=== PATIENT | male | born 1975 | race Hispanic/Latino ===

== ENCOUNTER 2021-02-16 23:41 | Emergency (ER) | payer OTHER, SELFPAY ==
--- OUTSIDE RECORDS SUMMARY | 2021-02-16 23:46 | XMS REPORT | Continuity of Care Document ---
:1975 Author Organization [facility] t Address [address] [place] [address] Care Team Providers Name Role Phone Unavailable Unavailable Unavailable Problems This patient has no known problems. Allergies, Adverse Reactions, Alerts This patient has no known allergies or adverse reactions. Medications This patient has no known medications. Procedures This patient has no known procedures. Encounters Start End Encounter Admission Attending Care Care Encounter Source Date/Time Date/Time Type Type Clinicians Facility Department ID 2020-11-15 2020-11-15 Outpatient PETERSON PETERSON [id number] [facility] 00:00:00 00:00:00 [facility] 2020-09-30 2020-09-30 Outpatient PETERSON PETERSON [id number] [facility] 00:00:00 00:00:00 e [facility] 2020-09-18 2020-09-18 Outpatient PETERSON PETERSON [id number] [facility] 00:00:00 00:00:00 [facility] 2020-09-17 2020-09-17 Outpatient PETERSON PETERSON [id number] [facility] 00:00:00 00:00:00 [facility] Results Test Description Test Time Test Comments Results Result Comments Source [facility] 2017-08-18 02:19:00 Test Item Value Reference Range Interpretation Comme nts SODIUM (test code = NA) 143 MMOL/L 137-145 K+ (test code = KSERUM) 3.9 MMOL/L 3.5-5.1 PLEASE NOTE NEW REFERENCE RANGE (S) IN EFFECT EFFECTIVE 10/10/2009 - NEW ANALYZER (VITRO S 5600) CHLORIDE (test code = CL) 105 MMOL/L 98-107 CO2 (test code = CO2) 27 MMOL/L 22-30 BUN (test code = BUN) 6 MG/DL 9-20 L CREA (test code = CREA) 0.7 MG/DL 0.8-1.5 L GLUCOSE (test code = 94 MG/DL 70-99 Fasti ng glucose normal <100 GLUCOSE) MG/DL- [place] [employer] recommend ation CALCIUM (test code = 9.2 MG/DL 8.4-10.2 CABLOOD) TOTPROT (test code = 6.5 G/DL 6.3-8.2 TOTPROT) ALBUMIN (test code = 3.2 G/DL 3.5-5.0 L ALBSERUM) BILITOT (test code = 0.6 MG/DL 0.2-1.3 BILITOT) AST (test code = AST) 11 U/L 15-46 L PHOSALK (test code = 52 U/L 38-126 PHOSALK) ALT (test code = ALT) 22 U/L 13-69 GFR (test code = GFR) 131 mL/min/1.73m2 A GFR of >90 mL/min/1.73m2 is considered norm al. [id number] 01:53:00 Test Item Value Reference Range Interpretation Comments WBC (test code = 11.2 K/UL 3.5-10.9 H WBC) RBC (test code = 3.95 M/UL 4.3-5.7 L RBC) HGB (test code = 11.5 G/DL 13.0-17.9 L HGB) HCT (test code = 33.1 % 38-52 L HCT) MCV (test code = 83.8 FL 80-98 MCV) MCH (test code = 29.1 PG 28-32 MCH) MCHC (test code = 34.7 G/DL 32.5-36.5 MCHC) RDW (test code = 11.9 % 11.5-14.5 RDW) PLT (test code = 606 K/UL 150-450 H PLT) MPV (test code = 8.5 FL 7.4-10.4 MPV) MANDIFF (test code = NO MANDIFF) SCAN (test code = NO SCAN) NEUT% (test code = 70.1 % 40-75 NEUT%) LYMPH% (test code = 17.5 % 24-44 L LYMPH%) MONO% (test code = 7.5 % 0-13 MONO%) EOS% (test code = 3.9 % 0-4 EOS%) BASO % (test code = 0.6 % 0-2 BASO%) IG% (test code = 0.4 % 0-1 IG% = Metam yelocytes, IG%) Myelocytes, and Promyelocytes. (Immature neutr ophils not including " bands".) > 3% IG indic ates risk of sepsis NRBC% (test code = 0 /100 WBC NRBC%) ABS NEUT (test code 7.8 K/UL 1.2-7.2 H = NEUT) CHEST XR 2 [id number] 12:51:[address] [id number] IMAGING REPORTPatient Name: Javier HYATT of Service: [id number]: 41 Sex: M Order #: [id number] Room: [address] [place] [address] 2NWDOB: 1975 X-Ray Number: [id number] Record Number: [id number] Hospital Number: [id number] Physician: Gillian VILLALTA Physician: Alena VILLALTA 2 views 12:30 PMCOMPARISON: 08/13/2017HISTORY: Preop respiratory assessment.FINDINGS:Heart size is normal.There is no focal lung consolidation.There is no definite pleural effusion or pneumothorax identified.There is evidence of old healed granulomatous infection.IMPRESSION:No acute cardiopulmonary process.Electron ically Signed By: Ja Cuenca M.D., 08/17/2017 12:49 PMLegally authenticated by ANNEL GRANT 2017-08-17 12:49:[id number] 09:40:00 Test Item Value Reference Range Interpretation Comments SODIUM (test code = 140 MMOL/L 137-145 NA) K+ (test code = 3.8 MMOL/L 3.5-5.1 PLEASE NOTE NEW KSERUM) REFERENCE RANGE (S) IN EFFECT EFFECTIVE 010 - NEW ANALYZER (V ITROS 5600) CHLORIDE (test code 105 MMOL/L 98-107 = CL) CO2 (test code = 28 MMOL/L 22-30 CO2) BUN (test code = 5 MG/DL 9-20 L BUN) CREA (test code = 0.6 MG/DL 0.8-1.5 L CREA) GLUCOSE (test code 98 MG/DL 70-99 Fasting glucose = GLUCOSE) normal <100 MG/ DL- [place] [employer] recommendation* * CALCIUM (test code 9.0 MG/DL 8.4-10.2 = CABLOOD) TOTPROT (test code 6.4 G/DL 6.3-8.2 = TOTPROT) ALBUMIN (test code 3.2 G/DL 3.5-5.0 L = ALBSERUM) BILITOT (test code 0.5 MG/DL 0.2-1.3 = BILITOT) AST (test code = 13 U/L 15-46 L AST) PHOSALK (test code 51 U/L 38-126 = PHOSALK) ALT (test code = 24 U/L 13-69 ALT) GFR (test code = 156 A GFR of >9 0 GFR) mL/min/1.73m2 mL/min/1.73m2 is considered norm al. [id number] 09:40:00 Test Item Value Reference Range Interpretation Comments IRON (test code = 36 UG/DL 49-181 L If Iron is <6 the % FE) saturation is incalculable. [id number] 09:40:00 Test Item Value Reference Range Interpretation Comments FERRITIN (test code = FERR) 269 NG/ML 18-464 [id number] 06:56:00 Test Item Value Reference Range Interpretation Comments WBC (test code = 9.8 K/UL 3.5-10.9 WBC) RBC (test code = 4.23 M/UL 4.3-5.7 L RBC) HGB (test code = 11.8 G/DL 13.0-17.9 L HGB) HCT (test code = 34.8 % 38-52 L HCT) MCV (test code = 82.3 FL 80-98 MCV) MCH (test code = 27.9 PG 28-32 L MCH) MCHC (test code = 33.9 G/DL 32.5-36.5 MCHC) RDW (test code = 12.0 % 11.5-14.5 RDW) PLT (test code = 561 K/UL 150-450 H PLT) MPV (test code = 8.1 FL 7.4-10.4 MPV) MANDIFF (test code = NO MANDIFF) SCAN (test code = NO SCAN) NEUT% (test code = 74.9 % 40-75 NEUT%) LYMPH% (test code = 12.5 % 24-44 L LYMPH%) MONO% (test code = 8.1 % 0-13 MONO%) EOS% (test code = 3.6 % 0-4 EOS%) BASO % (test code = 0.5 % 0-2 BASO%) IG% (test code = 0.4 % 0-1 IG% = Metam yelocytes, IG%) Myelocytes, and Promyelocytes. (Immature neutr ophils not including " bands".) > 3% IG indic ates risk of sepsis NRBC% (test code = 0 /100 WBC NRBC%) ABS NEUT (test code 7.4 K/UL 1.2-7.2 H = NEUT) BLOOD [id number] 06:55:00 Test Item Value Reference Range Interpretation Comments Report Text (test [facility] 2017-08-121844 code = Report Text) Report Text7 (test BLOOD CULTURES HELD FOR code = Report 5 DAYS BEFORE FINAL Text7) Report Text8 (test code = Report Text8) Report Text9 (test EMIRATI SOCIETY OF code = Report MICROBIOLOGY SUGGESTS THAT Text9) Report Text10 (test MOST CASES OF BACTEREMIA code = Report ARE DETECTED BY USING Text10) Report Text11 (test THREE SETS OF SEPARATELY code = Report COLLECTED BLOOD CULTURES. Text11) Report Text12 (test [facility] 2017-08-121845 code = Report Text12) Report Text13 (test CONVERSELY, A SINGLE BLOOD code = Report CULTURE MAY MISS Text13) Report Text14 (test INTERMITTENTLY OCCURRING code = Report BACTEREMIA AND MAKE Text14) Report Text15 (test IT DIFFICULT TO INTERPRET code = Report THE CLINICAL Text15) Report Text16 (test SIGNIFICANCE OF CERTAIN code = Report ISOLATED ORGANISMS. Text16) Report Text17 (test code = Report Text17) Report Text18 (test DJS 2017-08-12 1847 code = Report Text18) Report Text19 (test COLLECTION SITE code = Report UNSPECIFIED Text19) Report Text20 (test CWJ 2017-08-13 651 code = Report Text20) Report Text21 (test NO GROWTH WITHIN 1 DAY code = Report Text21) Report Text22 (test PRELIMINARY REPORT code = Report Text22) Report Text23 (test code = Report Text23) Report Text24 (test DMB 2017-08-14 1209 code = Report Text24) Report Text25 (test NO GROWTH WITHIN 2 DAYS code = Report Text25) Report Text26 (test PRELIMINARY REPORT code = Report Text26) Report Text27 (test code = Report Text27) Report Text28 (test PDG 2017-08-17 655 code = Report Text28) Report Text29 (test NO GROWTH WITHIN 5 DAYS code = Report Text29) Report Text30 (test FINAL REPORT code = Report Text30) BLOOD [id number] 06:55:00 Test Item Value Reference Range Interpretation Comments Report Text (test DJS 2017-08-12 1845 code = Report Text) Report Text7 (test BLOOD CULTURES HELD FOR code = Report 5 DAYS BEFORE FINAL Text7) Report Text8 (test code = Report Text8) Report Text9 (test EMIRATI SOCIETY OF code = Report MICROBIOLOGY SUGGESTS THAT Text9) Report Text10 (test MOST CASES OF BACTEREMIA code = Report ARE DETECTED BY USING Text10) Report Text11 (test THREE SETS OF SEPARATELY code = Report COLLECTED BLOOD CULTURES. Text11) Report Text12 (test [facility] 2017-08-126 code = Report Text12) Report Text13 (test CONVERSELY, A SINGLE BLOOD code = Report CULTURE MAY MISS Text13) Report Text14 (test INTERMITTENTLY OCCURRING code = Report BACTEREMIA AND MAKE Text14) Report Text15 (test IT DIFFICULT TO INTERPRET code = Report THE CLINICAL Text15) Report Text16 (test SIGNIFICANCE OF CERTAIN code = Report ISOLATED ORGANISMS. Text16) Report Text17 (test code = Report Text17) Report Text18 (test [facility] 2017-08-121846 code = Report Text18) Report Text19 (test COLLECTION SITE code = Report UNSPECIFIED Text19) Report Text20 (test [facility] 2017-08-13 651 code = Report Text20) Report Text21 (test NO GROWTH WITHIN 1 DAY code = Report Text21) Report Text22 (test PRELIMINARY REPORT code = Report Text22) Report Text23 (test code = Report Text23) Report Text24 (test DMB 2017-08-14 1209 code = Report Text24) Report Text25 (test NO GROWTH WITHIN 2 DAYS code = Report Text25) Report Text26 (test PRELIMINARY REPORT code = Report Text26) Report Text27 (test code = Report Text27) Report Text28 (test PDG 2017-08-17 655 code = Report Text28) Report Text29 (test NO GROWTH WITHIN 5 DAYS code = Report Text29) Report Text30 (test FINAL REPORT code = Report Text30) CULTURE, [id number] 10:35:00 Test Item Value Reference Range Interpretation Comments CULTFLU (test code = CULTFLU) CULTFLU (test code = [id number]) [facility] 2017-08-14 1313 GRAM NEGATIVE BACILLI ISOLATED OXIDASE TO FOLLOW PRELIMINARY REPORT [facility] 2017-08-15 1002 OXIDASE NEGATIVE GRAM NEGATIVE BACILLI ISOLATED (PROBABLE E.COLI) PRELIMINARY REPORT [facility] [id number] ID AND/OR SENSITIVITY TO FOLLOW PRELIMINARY REPORT [facility] 2017-08-15 1004 ISOLATE #2 [facility] 2017-08-15 1005 GRAM POSITIVE COCCI ISOLATED CATALASE TO FOLLOW PRELIMINARY REPORT [facility] 2017-08-16 1035 ISOLATE #2 [facility] 2017-08-16 1036 ALPHA STREPTOCOCCUS ISOLATED ALPHA STREPTOCOCCUS CONSIDERED COMMENSAL GIDEON (CONTAMINANT) WHEN ISOLATED ([employer]'S DIAGNOSTIC MICROBIOLOGY, 4TH EDITION) NO SENSITIVITY PERFORMEDBMP, BASIC METABOLIC [id number] 06:27:00 Test Item Value Reference Range Interpretation Comments SODIUM (test code = 139 MMOL/L 137-145 NA) K+ (test code = 4.4 MMOL/L 3.5-5.1 PLEASE NOTE NEW KSERUM) REFERENCE RANGE (S) IN EFFECT EFFECTIVE 010 - NEW ANALYZER (V ITROS 5600) CHLORIDE (test code 99 MMOL/L 98-107 = CL) CO2 (test code = 31 MMOL/L 22-30 H CO2) BUN (test code = 8 MG/DL 9-20 L BUN) CREA (test code = 0.7 MG/DL 0.8-1.5 L CREA) GLUCOSE (test code 97 MG/DL 70-99 Fasting glucose = GLUCOSE) normal <100 MG/ DL- [place] [employer] recommendation* * CALCIUM (test code 8.9 MG/DL 8.4-10.2 = CABLOOD) GFR (test code = 131 A GFR of >9 0 GFR) mL/min/1.73m2 mL/min/1.73m2 is considered norm al. [id number] 05:58:00 Test Item Value Reference Range Interpretation Comments WBC (test code = 12.1 K/UL 3.5-10.9 H WBC) RBC (test code = 4.17 M/UL 4.3-5.7 L RBC) HGB (test code = 12.1 G/DL 13.0-17.9 L HGB) HCT (test code = 35.2 % 38-52 L HCT) MCV (test code = 84.4 FL 80-98 MCV) MCH (test code = 29.0 PG 28-32 MCH) MCHC (test code = 34.4 G/DL 32.5-36.5 MCHC) RDW (test code = 11.9 % 11.5-14.5 RDW) PLT (test code = 469 K/UL 150-450 H PLT) MPV (test code = 8.3 FL 7.4-10.4 MPV) MANDIFF (test code = NO MANDIFF) SCAN (test code = NO SCAN) NEUT% (test code = 71.8 % 40-75 NEUT%) LYMPH% (test code = 13.5 % 24-44 L LYMPH%) MONO% (test code = 9.6 % 0-13 MONO%) EOS% (test code = 4.1 % 0-4 H EOS%) BASO % (test code = 0.4 % 0-2 BASO%) IG% (test code = 0.6 % 0-1 IG% = Metam yelocytes, IG%) Myelocytes, and Promyelocytes. (Immature neutr ophils not including " bands".) > 3% IG indic ates risk of sepsis NRBC% (test code = 0 /100 WBC NRBC%) ABS NEUT (test code 8.7 K/UL 1.2-7.2 H = NEUT) GRAM [id number] 16:50:00 Test Item Value Reference Range Interpretation Comments Report Text (test code [facility] 2017-08-13 1650 = Report Text) Report Text7 (test MANY WBC SEEN code = Report Text7) Report Text8 (test [facility] 2017-08-13 1651 code = Report Text8) Report Text9 (test MODERATE GRAM POSITIVE code = Report Text9) COCCI SEEN Report Text10 (test [facility] 2017-08-13 1652 code = Report Text10) Report Text11 (test MANY GRAM NEGATIVE code = Report Text11) BACILLI SEEN SPECIAL [id number] 15:12:[address] [id number] IMAGING REPORTPatient Name: Javier HYATT of Service: [id number]: 41 Sex: M Order #: [id number] Room: [address] [place] [address] 2NWDOB: 1975 X-Ray Number: [id number] Record Number: [id number] Hospital Number: [id number] Physician: Tawny WYMAN Physician: JANAE RUSH ANNCT-guided abscess drain, 08/13/2017 3:06 PM:History: Ruptured appendicitis.Technique/Findings:After obtaining written, informed consent the patient was placed in thesupine position on the CT table. Preliminary CT imaging was performeddemonstrating an appropriate access site. The overlying skin was in sizewith 1% lidocaine and a small dermatotomy made.Next, under intermittent CT guidance, an AccuStick needle was advanced intothe right lower quadrant abscess under intermittent fluoroscopicsurveillance. The internal stylette was removed and a micropuncture wirewas placed through the needle. The needle was removed and over the wire asheath was placed with internal stiffener. The puncture wire was thenremoved and the definite removed, and through the sheath a 0.035 wire wasadvanced into the abscess cavity. The sheath was removed and over the wirean 8.5 Afghan all- purpose drain was advanced. The catheter was aspiratedand yielded blood tinged pus. The pigtail was formed. Scanning confirmedappropriate placement. The catheter was secured to the patient's skin andattached to a J-Vac.Under physician supervision, Versed and fentanyl administered intravenouslyfor moderate sedation. Pulse oximetry, heart rate, and BP are continuouslymonitored by an independent trained observer present. The physician spent25 minutes offace to face sedation time with the patient.Estimated blood loss: Less than 5 ccImmediate complications: NoneImpression:1. Technically successful CT-guided abscess drain placement.Electronically SignedBy: Jesús Dean M.D., 08/13/2017 3:09 PMLegally authenticated by HAYDEN Fox 2017-08-13 15:09:58 CHEST 1 [id number] 08:15:[address] [id number] IMAGING REPORTPatient Name: Javier HYATT of Service: [id number]: 41 Sex: M Order #: [id number] Room: [address] [place] [address] 2NWDOB: 1975 X-Ray Number: [id number] Record Number: [id number] Hospital Number: [id number] Physician: Tawny WYMAN Physician: JANAE RUSH one view 08/13/2017 at 7:16 AMHistory: Acute appendicitis, abdominal painComparison: Prior day CT abdomen and pelvisCardiac, hilar, and mediastinal structures are within normal limits. Lineardensities persist at both lung bases consistent with atelectasis versuspneumonia. No effusion or pneumothorax. No acutebony or soft tissueabnormalities are identified.Impression:Bibasilar atelectasis versus pneumonia.Electronically Signed By: Karri Hernandez M.D., 08/13/2017 8:12 AMLegally authenticated by DOROTHY ALBRIGHT 2017-08-13 08:12:33CT ABDOMEN/PELVIS [id number] 07:23:[address] [id number] IMAGING REPORTPatient Name: Javier HYATT of Service: [id number]: 41 Sex: M Order #: [id number] Room: ERSDOB: 1975 X- Ray Number: [id number] Record Number: [id number] Hospital Number: [id number] Physician: VIGNESH LOVEOrdering Physician: EYAD MORTON abdomen and pelvis.History: Nausea, abdominal pain.Technique: IV contrast enhanced CT axial images of the abdomen and pelviswith sagittal and coronal reformatted images were reviewed.This CT exam was performed using one or more of the following dosereduction techniques: Automated exposure control, adjustment of the MAand/or KV according to patient size or use of iterative reconstructiontechnique.Comparison: August 03, 2017.Findings:Images of the lower lungs and mediastinum demonstrate no specific defects.The solid large organsof the upper abdomen appear focally normal.The gallbladder appears normal.There is no significant retroperitoneal adenopathy or fluid collectionsdepicted.Small bowel loops appear normal.There is an infracecal abscess suspected which is difficult to separatefrom the cecum itself. This is estimated at approximately 4.2 cm.There is a small fluid collection present lateral to this, also a smallabscess which measures 1.7 cm.The urinary bladder appears normal. There is no pelvic free fluid seen.Impression:Presumed ruptured appendicitis and interval abscess development.Electronically Signed By: Jesús Dean M.D., 08/13/2017 7:20 AMLegally authenticated by HAYDEN Fox 2017-08-13 07:20:55CB 2017-08-13 05:48:00 Test Item Value Reference Range Interpretation Comments WBC (test code = 15.6 K/UL 3.5-10.9 H WBC) RBC (test code = 4.41 M/UL 4.3-5.7 RBC) HGB (test code = 12.5 G/DL 13.0-17.9 L HGB) HCT (test code = 37.3 % 38-52 L HCT) MCV (test code = 84.6 FL 80-98 MCV) MCH (test code = 28.3 PG 28-32 MCH) MCHC (test code = 33.5 G/DL 32.5-36.5 MCHC) RDW (test code = 11.9 % 11.5-14.5 RDW) PLT (test code = 461 K/UL 150-450 H PLT) MPV (test code = 8.6 FL 7.4-10.4 MPV) MANDIFF (test code = NO MANDIFF) SCAN (test code = NO SCAN) NEUT% (test code = 79.0 % 40-75 H NEUT%) LYMPH% (test code = 10.0 % 24-44 L LYMPH%) MONO% (test code = 8.4 % 0-13 MONO%) EOS% (test code = 1.7 % 0-4 EOS%) BASO % (test code = 0.4 % 0-2 BASO%) IG% (test code = 0.5 % 0-1 IG% = Metam yelocytes, IG%) Myelocytes, and Promyelocytes. (Immature neutr ophils not including " bands".) > 3% IG indic ates risk of sepsis NRBC% (test code = 0 /100 WBC NRBC%) ABS NEUT (test code 12.3 K/UL 1.2-7.2 H = NEUT) [id number] 05:45:00 Test Item Value Reference Range Interpretation Comments SODIUM (test code = 138 MMOL/L 137-145 NA) K+ (test code = 4.3 MMOL/L 3.5-5.1 PLEASE NOTE NEW KSERUM) REFERENCE RANGE (S) IN EFFECT EFFECTIVE 010 - NEW ANALYZER (V ITROS 5600) CHLORIDE (test code 100 MMOL/L 98-107 = CL) CO2 (test code = 31 MMOL/L 22-30 H CO2) BUN (test code = 11 MG/DL 9-20 BUN) CREA (test code = 0.7 MG/DL 0.8-1.5 L CREA) GLUCOSE (test code 88 MG/DL 70-99 Fasting glucose = GLUCOSE) normal <100 MG/ DL- [place] [employer] recommendation* * CALCIUM (test code 8.8 MG/DL 8.4-10.2 = CABLOOD) TOTPROT (test code 6.8 G/DL 6.3-8.2 = TOTPROT) ALBUMIN (test code 3.4 G/DL 3.5-5.0 L = ALBSERUM) BILITOT (test code 0.9 MG/DL 0.2-1.3 = BILITOT) AST (test code = 15 U/L 15-46 AST) PHOSALK (test code 63 U/L 38-126 = PHOSALK) ALT (test code = 29 U/L 13-69 ALT) GFR (test code = 131 A GFR of >9 0 GFR) mL/min/1.73m2 mL/min/1.73m2 is considered norm al. [id number] 05:45:00 Test Item Value Reference Range Interpretation Comments PTT (test code = 42.2 SECONDS 24.4-36.3 H HEPARIN THE RAPEUTIC PTT) RANGE 57-92 SEC ONDS PROTHROMBIN TIME WITH [id number] 05:45:00 Test Item Value Reference Range Interpretation Comments PROTHROMBIN TIME 15.4 SECONDS 12.0-14.6 H INR Usual R hakan = 2 (test code = PT) to 3 for pr evention of deep vein thrombosis (DVT ) INR (test code = INR) 1.2 [id number] 19:28:00 Test Item Value Reference Range Interpretation Comments BLOOD TYPE (test code = TYPE) O Rh Positive ANTIBODY SCREEN (test code = NEGATIVE NEGATIVE SCREEN) [id number] 19:04:00 Test Item Value Reference Range Interpretation Comments WBC (test code = 17.0 K/UL 3.5-10.9 H WBC) RBC (test code = 4.88 M/UL 4.3-5.7 RBC) HGB (test code = 13.8 G/DL 13.0-17.9 HGB) HCT (test code = 40.4 % 38-52 HCT) MCV (test code = 82.8 FL 80-98 MCV) MCH (test code = 28.3 PG 28-32 MCH) MCHC (test code = 34.2 G/DL 32.5-36.5 MCHC) RDW (test code = 11.9 % 11.5-14.5 RDW) PLT (test code = 505 K/UL 150-450 H PLT) MPV (test code = 8.6 FL 7.4-10.4 MPV) MANDIFF (test code = NO MANDIFF) SCAN (test code = NO SCAN) NEUT% (test code = 82.5 % 40-75 H NEUT%) LYMPH% (test code = 9.1 % 24-44 L LYMPH%) MONO% (test code = 6.3 % 0-13 MONO%) EOS% (test code = 1.2 % 0-4 EOS%) BASO % (test code = 0.4 % 0-2 BASO%) IG% (test code = 0.5 % 0-1 IG% = Metam yelocytes, IG%) Myelocytes, and Promyelocytes. (Immature neutr ophils not including " bands".) > 3% IG indic ates risk of sepsis NRBC% (test code = 0 /100 WBC NRBC%) ABS NEUT (test code 14.0 K/UL 1.2-7.2 H = NEUT) BMP, BASIC METABOLIC [id number] 19:02:00 Test Item Value Reference Range Interpretation Comments SODIUM (test code = 135 MMOL/L 137-145 L NA) K+ (test code = 4.5 MMOL/L 3.5-5.1 PLEASE NOTE NEW KSERUM) REFERENCE RANGE (S) IN EFFECT EFFECTIVE 010 - NEW ANALYZER (V ITROS 5600) CHLORIDE (test code 95 MMOL/L 98-107 L = CL) CO2 (test code = 28 MMOL/L 22-30 CO2) BUN (test code = 15 MG/DL 9-20 BUN) CREA (test code = 0.8 MG/DL 0.8-1.5 CREA) GLUCOSE (test code 102 MG/DL 70-99 H Fasting glucose = GLUCOSE) normal <100 MG/ DL- [place] [employer] recommendation* * CALCIUM (test code 9.6 MG/DL 8.4-10.2 = CABLOOD) GFR (test code = 112 A GFR of >9 0 GFR) mL/min/1.73m2 mL/min/1.73m2 is considered norm al. BLOOD [id number] 06:55:00 Test Item Value Reference Range Interpretation Comments Report Text (test PDG 2017-08-03 650 code = Report Text) Report Text7 (test BLOOD CULTURES HELD FOR code = Report 5 DAYS BEFORE FINAL Text7) Report Text8 (test code = Report Text8) Report Text9 (test EMIRATI SOCIETY OF code = Report MICROBIOLOGY SUGGESTS THAT Text9) Report Text10 (test MOST CASES OF BACTEREMIA code = Report ARE DETECTED BY USING Text10) Report Text11 (test THREE SETS OF SEPARATELY code = Report COLLECTED BLOOD CULTURES. Text11) Report Text12 (test [facility] 2017-08-03 651 code = Report Text12) Report Text13 (test CONVERSELY, A SINGLE BLOOD code = Report CULTURE MAY MISS Text13) Report Text14 (test INTERMITTENTLY OCCURRING code = Report BACTEREMIA AND MAKE Text14) Report Text15 (test IT DIFFICULT TO INTERPRET code = Report THE CLINICAL Text15) Report Text16 (test SIGNIFICANCE OF CERTAIN code = Report ISOLATED ORGANISMS. Text16) Report Text17 (test code = Report Text17) Report Text18 (test [facility] 2017-08-03 652 code = Report Text18) Report Text19 (test COLLECTION SITE code = Report UNSPECIFIED Text19) Report Text20 (test [facility] 2017-08-04 643 code = Report Text20) Report Text21 (test NO GROWTH WITHIN 1 DAY code = Report Text21) Report Text22 (test PRELIMINARY REPORT code = Report Text22) Report Text23 (test code = Report Text23) Report Text24 (test [facility] 2017-08-05 858 code = Report Text24) Report Text25 (test NO GROWTH WITHIN 2 DAYS code = Report Text25) Report Text26 (test PRELIMINARY REPORT code = Report Text26) Report Text27 (test code = Report Text27) Report Text28 (test [facility] 2017-08-08 655 code = Report Text28) Report Text29 (test NO GROWTH WITHIN 5 DAYS code = Report Text29) Report Text30 (test FINAL REPORT code = Report Text30) BLOOD [id number] 06:55:00 Test Item Value Reference Range Interpretation Comments Report Text (test [facility] 2017-08-03 649 code = Report Text) Report Text7 (test BLOOD CULTURES HELD FOR code = Report 5 DAYS BEFORE FINAL Text7) Report Text8 (test code = Report Text8) Report Text9 (test [employer] OF code = Report MICROBIOLOGY SUGGESTS THAT Text9) Report Text10 (test MOST CASES OF BACTEREMIA code = Report ARE DETECTED BY USING Text10) Report Text11 (test THREE SETS OF SEPARATELY code = Report COLLECTED BLOOD CULTURES. Text11) Report Text12 (test [facility] 2017-08-03 650 code = Report Text12) Report Text13 (test CONVERSELY, A SINGLE BLOOD code = Report CULTURE MAY MISS Text13) Report Text14 (test INTERMITTENTLY OCCURRING code = Report BACTEREMIA AND MAKE Text14) Report Text15 (test IT DIFFICULT TO INTERPRET code = Report THE CLINICAL Text15) Report Text16 (test SIGNIFICANCE OF CERTAIN code = Report ISOLATED ORGANISMS. Text16) Report Text17 (test code = Report Text17) Report Text18 (test [facility] 2017-08-03 651 code = Report Text18) Report Text19 (test COLLECTION SITE code = Report UNSPECIFIED Text19) Report Text20 (test [facility] 2017-08-04 643 code = Report Text20) Report Text21 (test NO GROWTH WITHIN 1 DAY code = Report Text21) Report Text22 (test PRELIMINARY REPORT code = Report Text22) Report Text23 (test code = Report Text23) Report Text24 (test [facility] 2017-08-05 858 code = Report Text24) Report Text25 (test NO GROWTH WITHIN 2 DAYS code = Report Text25) Report Text26 (test PRELIMINARY REPORT code = Report Text26) Report Text27 (test code = Report Text27) Report Text28 (test [facility] 2017-08-08 655 code = Report Text28) Report Text29 (test NO GROWTH WITHIN 5 DAYS code = Report Text29) Report Text30 (test FINAL REPORT code = Report Text30) CAMPYLOBACTER RAPID [id number] 15:03:00 Test Item Value Reference Range Interpretation Comments LOT # (test code = [id number] LOT #) EXP DATE (test code = 08-24 EXP DATE) INT QC (test code = PASSED INT QC) CAMPYLOBACTER ANTIGEN NOT PRESENT NOT PRESENT -Negat christiano test (test code = CAMPY) results indicates no Campylobacter a ntigen present in samp le or below the limit of detection for t he assay. -Positiv e test indicates Campylobacter a ntigen present in samp le. CULTURE, [id number] 12:20:00 Test Item Value Reference Range Interpretation Comments Report Text (test [facility] 2017-08-06 1159 code = Report Text) Report Text7 (test NO GROWTH WITHIN 24 HOURS code = Report Text7) Report Text8 (test PRELIMINARY REPORT code = Report Text8) Report Text9 (test code = Report Text9) Report Text10 (test [facility] 2017-08-07 1220 code = Report Text10) Report Text11 (test NO SALMONELLA, SHIGELLA, code = Report VIBRIO, AEROMONAS, Text11) Report Text12 (test OR PLESIOMONAS ISOLATED code = Report BY CULTURE METHOD. Text12) Report Text13 (test FINAL REPORT code = Report Text13) BMP, BASIC METABOLIC [id number] 06:27:00 Test Item Value Reference Range Interpretation Comments SODIUM (test code = 140 MMOL/L 137-145 NA) K+ (test code = 3.9 MMOL/L 3.5-5.1 PLEASE NOTE NEW KSERUM) REFERENCE RANGE (S) IN EFFECT EFFECTIVE 010 - NEW ANALYZER (V ITROS 5600) CHLORIDE (test code 103 MMOL/L 98-107 = CL) CO2 (test code = 29 MMOL/L 22-30 CO2) BUN (test code = 14 MG/DL 9-20 BUN) CREA (test code = 0.7 MG/DL 0.8-1.5 L CREA) GLUCOSE (test code 98 MG/DL 70-99 Fasting glucose = GLUCOSE) normal <100 MG/ DL- [place] [employer] recommendation* * CALCIUM (test code 8.4 MG/DL 8.4-10.2 = CABLOOD) GFR (test code = 131 A GFR of >9 0 GFR) mL/min/1.73m2 mL/min/1.73m2 is considered norm al. [id number] 05:27:00 Test Item Value Reference Range Interpretation Comments WBC (test code = 7.1 K/UL 3.5-10.9 WBC) RBC (test code = 4.03 M/UL 4.3-5.7 L RBC) HGB (test code = 11.6 G/DL 13.0-17.9 L HGB) HCT (test code = 34.4 % 38-52 L HCT) MCV (test code = 85.4 FL 80-98 MCV) MCH (test code = 28.8 PG 28-32 MCH) MCHC (test code = 33.7 G/DL 32.5-36.5 MCHC) RDW (test code = 12.5 % 11.5-14.5 RDW) PLT (test code = 237 K/UL 150-450 PLT) MPV (test code = 9.6 FL 7.4-10.4 MPV) MANDIFF (test code = NO MANDIFF) SCAN (test code = NO SCAN) NEUT% (test code = 68.3 % 40-75 NEUT%) LYMPH% (test code = 15.7 % 24-44 L LYMPH%) MONO% (test code = 8.3 % 0-13 MONO%) EOS% (test code = 6.9 % 0-4 H EOS%) BASO % (test code = 0.4 % 0-2 BASO%) IG% (test code = 0.4 % 0-1 IG% = Metam yelocytes, IG%) Myelocytes, and Promyelocytes. (Immature neutr ophils not including " bands".) > 3% IG indic ates risk of sepsis NRBC% (test code = 0 /100 WBC NRBC%) ABS NEUT (test code 4.9 K/UL 1.2-7.2 = NEUT) CDIFF AMPLIFIED [id number] 18:02:00 Test Item Value Reference Range Interpretation Comments C DIFFICILE TESTING NEGATIVE NEGATIVE PSEUDOME MBRANOUS ON STOOL (test code COLITIS, BY DEFINITION, = CDIFF) IS DIARRHEA, IN PATIENTS OLDER THAN 6 MO NTHS OF AGE, CAUSED BY LONG-TERM ANTIBIOTIC EXPO SURE. NON-DIARRHEAL S TOOLS WILL NOT BE RUIZ MAURO. C.DIFF LOT # (test [id number] code = CDIFFLOT) C. DIFF EXPIRATION 2018-04-29 DATE (test code = CDIFFEXP) OCCULT BLOOD, [id number] 16:04:00 Test Item Value Reference Range Interpretation Comments OCCULT BLOOD FECES (test code = NEGATIVE NEGATIVE OCCBLFEC) LOT# CRD (test code = LOT# CRD) [id number] EXP CRD (test code = EXP CRD) 2019-06-06 LOT# DVL (test code = LOT# DVL) [id number] EXP DVL (test code = EXP DVL) 2019-12 INT QC (test code = INT QC) PASSED [id number] 05:11:00 Test Item Value Reference Range Interpretation Comments SODIUM (test code = 136 MMOL/L 137-145 L NA) K+ (test code = 3.5 MMOL/L 3.5-5.1 PLEASE NOTE NEW KSERUM) REFERENCE RANGE (S) IN EFFECT EFFECTIVE 010 - NEW ANALYZER (V ITROS 5600) CHLORIDE (test code 103 MMOL/L 98-107 = CL) CO2 (test code = 23 MMOL/L 22-30 CO2) BUN (test code = 21 MG/DL 9-20 H BUN) CREA (test code = 0.7 MG/DL 0.8-1.5 L CREA) GLUCOSE (test code 71 MG/DL 70-99 Fasting glucose = GLUCOSE) normal <100 MG/ DL- [place] [employer] recommendation* * CALCIUM (test code 8.3 MG/DL 8.4-10.2 L = CABLOOD) TOTPROT (test code 5.5 G/DL 6.3-8.2 L = TOTPROT) ALBUMIN (test code 2.9 G/DL 3.5-5.0 L = ALBSERUM) BILITOT (test code 2.0 MG/DL 0.2-1.3 H = BILITOT) AST (test code = 13 U/L 15-46 L AST) PHOSALK (test code 53 U/L 38-126 = PHOSALK) ALT (test code = 28 U/L 13-69 ALT) GFR (test code = 131 A GFR of >9 0 GFR) mL/min/1.73m2 mL/min/1.73m2 is considered norm al. [id number] 05:07:00 Test Item Value Reference Range Interpretation Comments WBC (test code = 10.5 K/UL 3.5-10.9 WBC) RBC (test code = 4.11 M/UL 4.3-5.7 L RBC) HGB (test code = 11.9 G/DL 13.0-17.9 L HGB) HCT (test code = 34.7 % 38-52 L HCT) MCV (test code = 84.4 FL 80-98 MCV) MCH (test code = 29.0 PG 28-32 MCH) MCHC (test code = 34.3 G/DL 32.5-36.5 MCHC) RDW (test code = 12.4 % 11.5-14.5 RDW) PLT (test code = 227 K/UL 150-450 PLT) MPV (test code = 10.1 FL 7.4-10.4 MPV) MANDIFF (test code = NO MANDIFF) SCAN (test code = NO SCAN) NEUT% (test code = 81.4 % 40-75 H NEUT%) LYMPH% (test code = 7.6 % 24-44 L LYMPH%) MONO% (test code = 6.7 % 0-13 MONO%) EOS% (test code = 3.5 % 0-4 EOS%) BASO % (test code = 0.4 % 0-2 BASO%) IG% (test code = 0.4 % 0-1 IG% = Metam yelocytes, IG%) Myelocytes, and Promyelocytes. (Immature neutr ophils not including " bands".) > 3% IG indic ates risk of sepsis NRBC% (test code = 0 /100 WBC NRBC%) ABS NEUT (test code 8.6 K/UL 1.2-7.2 H = NEUT) [id number] 12:04:00 Test Item Value Reference Range Interpretation Comments WBC (test code = 10.6 K/UL 3.5-10.9 WBC) RBC (test code = 4.70 M/UL 4.3-5.7 RBC) HGB (test code = 13.7 G/DL 13.0-17.9 HGB) HCT (test code = 40.1 % 38-52 HCT) MCV (test code = 85.3 FL 80-98 MCV) MCH (test code = 29.1 PG 28-32 MCH) MCHC (test code = 34.2 G/DL 32.5-36.5 MCHC) RDW (test code = 12.6 % 11.5-14.5 RDW) PLT (test code = 193 K/UL 150-450 PLT) MPV (test code = 9.4 FL 7.4-10.4 MPV) MANDIFF (test code = NO MANDIFF) SCAN (test code = NO SCAN) NEUT% (test code = 82.1 % 40-75 H NEUT%) LYMPH% (test code = 8.3 % 24-44 L LYMPH%) MONO% (test code = 6.5 % 0-13 MONO%) EOS% (test code = 2.2 % 0-4 EOS%) BASO % (test code = 0.5 % 0-2 BASO%) IG% (test code = 0.4 % 0-1 IG% = Metam yelocytes, IG%) Myelocytes, and Promyelocytes. (Immature neutr ophils not including " bands".) > 3% IG indic ates risk of sepsis NRBC% (test code = 0 /100 WBC NRBC%) ABS NEUT (test code 8.7 K/UL 1.2-7.2 H = NEUT) WHOLE BLOOD [id number] 07:16:00 Test Item Value Reference Range Interpretation Comments WHOLE BLOOD GLUCOSE 378 mg/dL 70-99 H Fastin g glucose (test code = POC GLU) normal <100 MG/DL- [place] [employer] recommend ation HEPATITIS C ANTIBODY [id number] 13:09:00 Test Item Value Reference Range Interpretation Comments SCRN HCV (test code NEGATIVE NEGATIVE Hepatiti s C Antibody test = SCRN HCV) is for screenin g purposes only. All react kellen will be confirmed by additional test ing. ER SCREEN FOR HIV 13:09:00 Test Item Value Reference Range Interpretation Comments HIV 1/2 AB (test NONREACTIVE NONREACTIVE This test i s used for code = SCRN HIV) SCREENING p urposes only. All reactive re sults are prelimenary and confirmation re sults will follow. [id number] 08:10:00 Test Item Value Reference Range Interpretation Comments BLOOD TYPE (test code = TYPE) O Rh Positive ANTIBODY SCREEN (test code = NEGATIVE NEGATIVE SCREEN) CT ABDOMEN/PELVIS [id number] 07:27:[address] [id number] IMAGING REPORTPatient Name: Javier HYATT of Service: [id number]: 41 Sex: M Order #: [id number] Room: [facility]: 1975 X-Ray Number: [id number] Record Number: [id number] Hospital Number: [id number] Physician: Michael MORTONing Physician: EYAD MORTON abdomen and pelvis.History: Nausea, abdominal pain.Technique: IV contrast enhanced CT axial images of the abdomen and pelviswith sagittal and coronal reformatted images were reviewed.This CT exam was performed using one or more of the following dosereduction techniques: Automated exposure control, adjustment of the MAand/or KV according to patient size or use of iterative reconstructiontechnique.Comparison: None.Findings:Images ofthe lower lungs and mediastinum demonstrate no specific defects.There are 2 benign-appearing cysts involving the left kidney.The other solid large organs of the upper abdomen appear focally normal.The gallbladder appears normal.There is no significant retroperitoneal adenopathy or fluid collectionsdepicted.Small bowel loops appear normal.Large bowel loops demonstrate only scattered fecal debris.The appendix is enlarged, dilated and thick-walled with appendicolithpresent. There is marked surrounding inflammation and fluid tracking alongthe right paracolic gutter, perforation not excluded.The urinarybladder appears normal. There is small pelvic free fluid seen.Impression:Acute appendicitis, perforation not excluded. Proximal appendicolith.Electronically Signed By: Jesús Dean M.D., 08/03/2017 7:25 AMLegally authenticated by HAYDEN Fox 2017-08-03 07:25:14BMP, BASIC METABOLIC [id number] 06:38:00 Test Item Value Reference Range Interpretation Comments SODIUM (test code = 134 MMOL/L 137-145 L NA) K+ (test code = 3.6 MMOL/L 3.5-5.1 PLEASE NOTE NEW KSERUM) REFERENCE RANGE (S) IN EFFECT EFFECTIVE 010 - NEW ANALYZER (V ITROS 5600) CHLORIDE (test code 99 MMOL/L 98-107 = CL) CO2 (test code = 22 MMOL/L 22-30 CO2) BUN (test code = 10 MG/DL 9-20 BUN) CREA (test code = 0.7 MG/DL 0.8-1.5 L CREA) GLUCOSE (test code 156 MG/DL 70-99 H Fasting glucose = GLUCOSE) normal <100 MG/ DL- [place] [employer] recommendation* * CALCIUM (test code 8.5 MG/DL 8.4-10.2 = CABLOOD) GFR (test code = 131 A GFR of >9 0 GFR) mL/min/1.73m2 mL/min/1.73m2 is considered norm al. [id number] 06:25:00 Test Item Value Reference Range Interpretation Comments WBC (test code = 12.7 K/UL 3.5-10.9 H WBC) RBC (test code = 4.82 M/UL 4.3-5.7 RBC) HGB (test code = 14.2 G/DL 13.0-17.9 HGB) HCT (test code = 40.5 % 38-52 HCT) MCV (test code = 84.0 FL 80-98 MCV) MCH (test code = 29.5 PG 28-32 MCH) MCHC (test code = 35.1 G/DL 32.5-36.5 MCHC) RDW (test code = 12.2 % 11.5-14.5 RDW) PLT (test code = 207 K/UL 150-450 PLT) MPV (test code = 9.6 FL 7.4-10.4 MPV) MANDIFF (test code = NO MANDIFF) SCAN (test code = NO SCAN) NEUT% (test code = 85.8 % 40-75 H NEUT%) LYMPH% (test code = 5.2 % 24-44 L LYMPH%) MONO% (test code = 8.0 % 0-13 MONO%) EOS% (test code = 0.2 % 0-4 EOS%) BASO % (test code = 0.2 % 0-2 BASO%) IG% (test code = 0.6 % 0-1 IG% = Metam yelocytes, IG%) Myelocytes, and Promyelocytes. (Immature neutr ophils not including " bands".) > 3% IG indic ates risk of sepsis NRBC% (test code = 0 /100 WBC NRBC%) ABS NEUT (test code 10.9 K/UL 1.2-7.2 H = NEUT) ABDOMEN 2 [id number] 07:33:[address] [id number] IMAGING REPORTPatient Name: Javier HYATT of Service: [id number]: 41 Sex: M Order #: [id number] Room: ER SDOB: 1975 X-Ray Number: [id number] Record Number: [id number] Hospital Number: [id number] Physician: DAVID MORTONOrdering Physician: Valeriy BAUTISTA.History: Abdomen pain.Technique: 4 supine and upright abdominal projections were obtained andreviewed.Findings:There isno specific acute appearing abdominal abnormality.There is diffuse fecal stasis.There is no evidenceto suggest obstruction or free air.The osseous structures appear intact.Impression:No specific acuteappearing abdominal abnormalities.Fecal stasis.Electronically Signed By: Jesús Dean M.D., 08/02/2017 7:31 AMLegally authenticated by HAYDEN Fox 2017-08-02 07:31:16URINALYSIS 2017-08-02 00:26:00 Test Item Value Reference Range Interpretation Comments GLUCOSE (test code = URGLU) NEGATIVE MG/DL NEG-100 BILIRUBN (test code = URBILI) NEGATIVE NEGATIVE KETONE (test code = URKET) NEGATIVE MG/DL NEGATIVE BLOOD (test code = URBLD) NEGATIVE UR PH (test code = URPH) 7.0 5.0-7.5 PROTEIN (test code = URPRO) NEGATIVE MG/DL NEGATIVE NITRITES (test code = URNIT) NEGATIVE NEGATIVE UROBILINGEN (test code = 0.2 EU/DL 0.2-1.0 URURO) LEUKOCYT (test code = URLEU) NEGATIVE NEGATIVE UA COLOR (test code = UA YELLOW YELLOW COLOR) CLARITY (test code = CLARITY) CLEAR CLEAR SP GRAV (test code = URSPGRAV) <=1.005 1.000-1.025 UAMICRO (test code = UAMICRO) NO [id number] 00:20:00 Test Item Value Reference Range Interpretation Comments SODIUM (test code = 140 MMOL/L 137-145 NA) K+ (test code = 3.5 MMOL/L 3.5-5.1 PLEASE NOTE NEW KSERUM) REFERENCE RANGE (S) IN EFFECT EFFECTIVE 010 - NEW ANALYZER (V ITROS 5600) CHLORIDE (test code 98 MMOL/L 98-107 = CL) CO2 (test code = 31 MMOL/L 22-30 H CO2) BUN (test code = 12 MG/DL 9-20 BUN) CREA (test code = 0.8 MG/DL 0.8-1.5 CREA) GLUCOSE (test code 110 MG/DL 70-99 H Fasting glucose = GLUCOSE) normal <100 MG/ DL- [place] [employer] recommendation* * CALCIUM (test code 9.0 MG/DL 8.4-10.2 = CABLOOD) TOTPROT (test code 7.2 G/DL 6.3-8.2 = TOTPROT) ALBUMIN (test code 4.3 G/DL 3.5-5.0 = ALBSERUM) BILITOT (test code 0.7 MG/DL 0.2-1.3 = BILITOT) AST (test code = 25 U/L 15-46 AST) PHOSALK (test code 72 U/L 38-126 = PHOSALK) ALT (test code = 39 U/L 13-69 ALT) GFR (test code = 112 A GFR of >9 0 GFR) mL/min/1.73m2 mL/min/1.73m2 is considered norm al. [id number] 00:20:00 Test Item Value Reference Range Interpretation Comments LIPASE (test code = LIPA) 46 U/L 23-300 [id number] 00:06:00 Test Item Value Reference Range Interpretation Comments WBC (test code = 14.6 K/UL 3.5-10.9 H WBC) RBC (test code = 5.05 M/UL 4.3-5.7 RBC) HGB (test code = 15.0 G/DL 13.0-17.9 HGB) HCT (test code = 41.7 % 38-52 HCT) MCV (test code = 82.6 FL 80-98 MCV) MCH (test code = 29.7 PG 28-32 MCH) MCHC (test code = 36.0 G/DL 32.5-36.5 MCHC) RDW (test code = 12.3 % 11.5-14.5 RDW) PLT (test code = 255 K/UL 150-450 PLT) MPV (test code = 9.4 FL 7.4-10.4 MPV) MANDIFF (test code = NO MANDIFF) SCAN (test code = NO SCAN) NEUT% (test code = 80.7 % 40-75 H NEUT%) LYMPH% (test code = 8.4 % 24-44 L LYMPH%) MONO% (test code = 9.2 % 0-13 MONO%) EOS% (test code = 1.1 % 0-4 EOS%) BASO % (test code = 0.3 % 0-2 BASO%) IG% (test code = 0.3 % 0-1 IG% = Metam yelocytes, IG%) Myelocytes, and Promyelocytes. (Immature neutr ophils not including " bands".) > 3% IG indic ates risk of sepsis NRBC% (test code = 0 /100 WBC NRBC%) ABS NEUT (test code 11.8 K/UL 1.2-7.2 H = NEUT)
[2021-02-17 00:43] LABS: Absolute Lymphocytes (CBC) 1.6 K/uL (0.7-4.9); Basophils % 1.3 % (0-1.3); Hematocrit 44.8 % (39.6-49.0); Lymphocytes % 27.9 % (15.3-44.8); MPV 7.6 fL (7.6-11.3); RBC Red Blood Cell Count 5.32 M/uL (4.33-5.43)
[2021-02-17 01:12] LABS: Potassium 3.9 mmol/L (3.5-5.1)
[2021-02-17] MEDS ORDERED: FENTANYL CITR 100 MCG/2 ML ONE (02:29)
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
[2021-02-17 03:12] VITALS: TEMP 98.8
[2021-02-17 03:17] VITALS: BP 126/81; O2SAT 96
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
== END 2021-02-17 03:08 | disposition home or self-care (01) ==
LOC: ER 23:41
DX: M54.9 Dorsalgia, unspecified (principal); V49.40XA Driver injured in collision with unspecified motor vehicles in traffic accident, initial encounter
CPT/HCPCS: 85025; 80048; 36415; 86900; 86850 ×2; 86901; 70450; 72125; 71260; 74177; 96374; 99285; Q9967; J3010